=== PATIENT | female | born 1960 | race Asian ===

== ENCOUNTER 2020-06-05 14:57 | Emergency (ER) | payer OTHER ==
[~2020-06-05] VITALS: Ht 160 cm; Wt 56.8 kg
[2020-06-05] MEDS ORDERED: ASPI-728 PO (14:59)
[2020-06-05] MEDS: KETOROLAC TROMETHAMINE 30 MG/ML VIAL IM ONE (17:15)
[2020-06-05 18:11] VITALS: BP 137/76
== END 2020-06-05 18:17 | disposition home or self-care (01) ==
LOC: EMS 14:59
DX: M19.041 Primary osteoarthritis, right hand (principal); Z79.82 Long term (current) use of aspirin
CPT/HCPCS: 96372; 99283; J1885